=== PATIENT | female | born 1945 | race Caucasian/White ===

== ENCOUNTER 2017-04-24 11:53 | Day surgery (SDC) | payer MEDICARE, BC ==
[~2017-04-24 11:53] MED LIST: Buffered Lidocaine 0.9% SYRIN* 5 ML/SYR SYRINGE INTRADERM ONE
[2017-04-24] MEDS ORDERED: Buffered Lidocaine 0.9% SYRIN* 5 ML/SYR SYRINGE ONE (12:26)
[2017-04-24] MEDS ORDERED: Midazolam* 1 MG/ML 5 ML VIAL (5 MG) ONE (13:39)
[2017-04-24] MEDS ORDERED: fentaNYL* 50 MCG/ML 2 ML VIAL (100 MCG VIAL) ONE (13:48)
[2017-04-24] MEDS ORDERED: Atracurium* 10 MG/ML 10 ML VIAL ONE (13:48)
[2017-04-24] MEDS ORDERED: Propofol* 10 MG/ML 20 ML BTL IV PUSH ONE (13:48)
[2017-04-24] MEDS ORDERED: DiMENhydriNATE IV* 50 MG/ML VIAL IV PUSH PRN (14:11)
[2017-04-24] MEDS ORDERED: fentaNYL* 50 MCG/ML 2 ML VIAL (100 MCG VIAL) IV PRN (14:11)
[2017-04-24] MEDS ORDERED: Ondansetron INJ* 2 MG/ML VIAL IV PRN (14:11)
[2017-04-24] MEDS ORDERED: Glycopyrrolate IV* 0.2 MG/ML 1 ML VIAL ONE ×2 (14:17→14:22)
[2017-04-24] MEDS ORDERED: Neostigmine Methylsulfate* 2 MG/2 ML SYRINGE ONE ×2 (14:17→14:22)
[2017-04-24 16:02] VITALS: BP 129/69
--- NOTE | 2017-04-25 05:31 | PRO ---
DATE: 04/24/17 - ENDO REFERRING PHYSICIAN: Chani Marmolejo MD * PROCEDURE: Upper gastrointestinal endoscopy under anesthesia with biopsy of thickened duodenal fold, then BICAP fulguration of the fold and a separate 2 mm mucosal nodule 4 to 5 cm proximal to that. It is a separate lesion. INDICATION: This 71-year-old woman had a small mucosal asymmetry noted during an upper endoscopy investigating on related symptoms. A biopsy doubt as a duodenal polyp. She had a very pronounced gag reflex and apneic, cyanotic respiratory response to the prior procedure. Her pulse went into the 130s. To get a safe procedure and stable positioning for definitive extirpation of the lesion, anesthesia was requested. She has been feeling fine in the last several weeks since being seen in the office for the history and physical. She has not seen Dr. Marmolejo during that time. ENDOSCOPIST: Dr. Pierce. MEDICATIONS: Anesthesia per Dr. Kerr following intubation. FINDINGS: She is a chronically ill-appearing woman with a smoker's voice, slightly pasty complected, in no distress. EGD: Larynx - some blood present from intubation. There were no continuous bleeding. Esophagus - easily entered, sliding through, and the mucosa is normal in the upper, mid, and lower esophagus. EG junction at 39. EG junction is although loose, but there are no erosions. Stomach - many wispy bleeding points, mild in the body and proximal antrum. Otherwise, the gastric mucosa appears normal. There are no ulcers. Duodenum - the pylorus appears normal. In the bulb at a 9 o'clock orientation, there is prominent erythematous soft nodule, apparently a Carolina's gland or other anomaly. It was not desmoplastic and there was no mucosal break or bleeding. The second portion of the duodenum appeared normal. In the third portion, there was a slightly thickened fold with a slight atypical texture about 5 or 6 mm. Two biopsies were taken. Then the area was fulgurated with the BICAP probe at 20 norman. This was done circumferentially. There was no induced bleeding. About 4 or 5 cm proximal to that there was a 2 mm whitish mucosal anomaly, clearly not part of a papilla as it was in the opposite wall. It was fulgurated superficially. IMPRESSION: 1. Gastritis - NSAIDs will be held for a couple of weeks. 2. 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 3. Thickened duodenal fold - biopsied and fulgurated - it is not entirely if this is the original lesion which might have been extirpated by prior biopsies. Histology is pending. No early followup is contemplated or probably followup at the time of next followup colonoscopy. Addendum: normal mucosa no polyp so no f/u needed now [id number]/[facility] #: [id number] MTDD
== END 2017-04-24 16:00 | disposition home or self-care (01) ==
LOC: OR 11:53
PROVIDERS: ATTEND Internal Medicine Gastroenterology
DX: K31.9 Disease of stomach and duodenum, unspecified (principal); K29.70 Gastritis, unspecified, without bleeding; J44.9 Chronic obstructive pulmonary disease, unspecified; I10 Essential (primary) hypertension; F17.200 Nicotine dependence, unspecified, uncomplicated
CPT/HCPCS: 88305; J2250; J2704; J3010